=== PATIENT | female | born 1955 | race Caucasian/White ===

== ENCOUNTER → 2017-07-24 | Outpatient (CLI) | payer BC ==
[~2017-07-24] MED LIST: ACE500 PO; CAR100 PO; ESCI20TA38 PO; EZE10 PO; LOR7.5/325 PO; MULT-804 PO; OLM20 PO; VENL150C61 PO
--- NOTE | 2017-07-24 15:02 | RADIOLOGY IMAGING REPORT ---
FACILITY: [facility] PATIENT NAME: Landy Quezada : 1955 MR: [id number] V: [id number] EXAM DATE: ORDERING PHYSICIAN: JEEVAN RAMAN TECHNOLOGIST: Location: [facility] [place] Patient: Landy Quezada : 1955 Visit/Account:[id number] Date of Sevice: 07/24/2017 LUMBAR SPINE 2 OR 3 VIEW Indication: Low back pain and tailbone pain Comparison: None. Findings: There is disc space narrowing at L3-4, L4-5, and L5-S1. Facets are intact. There is mild fa cet arthropathy L4-5 and L5-S1. IMPRESSION: 1. Mild degenerative disc disease change at L3-4, L4-5, L5-S1. 2. Facet arthropathy L5-S1. Report Dictated By: Rikki Bey at 07/24/2017 2:47 PM Report E-Signed By: Rikki Bey at 07/24/2017 2:58 PM WSN:[id number]
--- NOTE | 2017-07-24 15:03 | RADIOLOGY IMAGING REPORT ---
FACILITY: [facility] [place] PATIENT NAME: Landy Quezada : 1955 MR: [id number] V: [id number] EXAM DATE: ORDERING PHYSICIAN: JEEVAN RAMAN TECHNOLOGIST: Location: [facility] [place] Patient: Landy Quezada : 1955 Visit/Account:[id number] Date of Sevice: 07/24/2017 SACRUM COCCYX Indication: Back pain and tailbone pain. Comparison: None. Findings: The sacrum and coccyx are intact. Soft tissues are normal. IMPRESSION: No evidence of fracture. Negative sacrum and coccyx radiograph. Report Dictated By: Rikki Bey at 07/24/2017 2:58 PM Report E-Signed By: Rikki Bey at 07/24/2017 2:59 PM WSN:[id number]
== END ==
LOC: RAD 10:58
PROVIDERS: ATTEND Nurse Practitioner Family
DX: M48.8X7 Other specified spondylopathies, lumbosacral region (principal); M51.36 Other intervertebral disc degeneration, lumbar region
CPT/HCPCS: 72100; 72220

== ENCOUNTER → 2018-02-12 | Outpatient (CLI) | payer BC, OTHER ==
--- NOTE | 2018-02-12 09:29 | RADIOLOGY IMAGING REPORT ---
FACILITY: [facility] [place] PATIENT NAME: Landy Quezada : 1955 MR: [id number] V: [id number] EXAM DATE: ORDERING PHYSICIAN: COLTON MYERS TECHNOLOGIST: Location: [facility] Patient: Landy Quezada : 1955 Visit/Account:[id number] Date of Sevice: 02/12/2018 Clinical history: Screening, postmenopausal. Family history of osteoporosis Comparison: None. LUMBAR SPINE: The bone mineral density (BMD) measured from L1-L4 correlates with a Z-score of 0.7 and a T-score of 0.6 which is normal as defined by the World Health Organization. The corresponding risk of fracture in the lumbar spine is not increased compared with a young adult reference population. HIP: Bone mineral density (BMD) measured in the left total hip region correlates with a Z-score of 0.2 and a T-score of 0.1 which is normal as defined by the World Health Organization. The corresponding ris k of fracture in the hip is not increased compared with a young adult reference population. Bone mineral density (BMD) measured in the left femoral neck correlates with a Z-score of 0.6 and a T -score of 0.1 which is normal as defined by the World Health Organization. The corresponding risk of fracture in the hip is not increased compared with a young adult reference population. Bone mineral density (BMD) measured in the left Femoral Neck region measures 1.051 g/cm2. Impression: 1. Lumbar spine: Normal. 2. Left total hip: Normal. 3. Left femoral neck: Normal 4. Left femoral neck Bone Mineral Density is 1.051 g/cm2 The next DEXA scan of this patient should include the following sites: Lumbar spine and left hip. FRAX? WHO Fracture Risk Assessment Tool link: http://www.shef.ac.uk/FRAX/tool.jsp?locationValue=9 PLEASE NOTE: 1) The World Health Organization defines low BMD as follows: T-score Normal > -1 Osteopenia < -1 and > -2.5 Osteoporosis < -2.5 without fractures Established osteoporosis < -2.5 with fractures 2) In general, you may wish to consider: Diagnosis Treatment Follow-up DEXA Normal BMD Prevention 2-3 years Osteopenia Prevention/therapy 1-2 years Osteoporosis Therapy Yearly 3) Fracture risk estimated from the T-score is more accurate for vertebral fractures (often spontane ous) than for hip fractures. Report Dictated By: April Boyd MD at 02/12/2018 9:23 AM Report E-Signed By: April Boyd MD at 02/12/2018 9:25 AM WSN:[email or web address]
--- NOTE | 2018-02-14 08:23 | RADIOLOGY IMAGING REPORT ---
FACILITY: [facility] PATIENT NAME: GISSELLE ARELLANO : [id number] MR: [id number] V: [id number] EXAM DATE: ORDERING PHYSICIAN: COLTON MYERS TECHNOLOGIST: Dinora Love PROCEDURE:BILATERAL DIGITAL SCREENING MAMMOGRAM WITH CAD ASSISTED INTERPRETATION & 3D TOMOSYNTHESIS COMPARISON:Prior mammograms 05/20/14, 05/13/14. INDICATIONS:screening FINDINGS: A small amount of fibroglandular tissue is seen throughout the breasts. The parenchymal pattern has remained stable allowing for difference in mammographic technique & patient positioning. There is no evidence of malignant appearing mass, malignant appearing calcifications or other secondary sign of malignancy in either breast. DIAGNOSTIC CATEGORY 1--NEGATIVE. RECOMMENDATIONS: ROUTINE MAMMOGRAM AND CLINICAL EVALUATION. IMPRESSION: BIRADS 1: Negative. No significant abnormality is seen. Dictated by: Minerva Pedraza M.D. on 02/12/2018 at 14:56 Transcribed by: GRICEL on 02/12/2018 at 15:00 Approved by: Minerva Pedraza M.D. on 02/14/2018 at 8:22 [facility]
== END ==
LOC: MAMO 00:46
PROVIDERS: ATTEND Nurse Practitioner Family
DX: Z13.820 Encounter for screening for osteoporosis (principal); Z12.31 Encounter for screening mammogram for malignant neoplasm of breast
CPT/HCPCS: 77063; 77067; 77080